=== PATIENT | female | born 1975 | race Caucasian/White ===

== ENCOUNTER 2017-12-19 07:53 | Day surgery (SDC) | payer BC ==
[2017-12-14 10:42] VITALS: BMI 19.9
[2017-12-19 08:18] VITALS: TEMP 97.9
[2017-12-19 10:07] VITALS: BP 90/70; PULSE 82
== END 2017-12-19 10:07 | disposition home or self-care (01) ==
LOC: FASU-ENDO 07:53
PROVIDERS: ATTEND Internal Medicine Gastroenterology
PROC: 0DJD8ZZ Inspection of Lower Intestinal Tract, Via Natural or Artificial Opening Endoscopic (ICD-10-PCS; principal; 2017-12-19 08:55)
DX: Z12.11 Encounter for screening for malignant neoplasm of colon (principal); Z80.0 Family history of malignant neoplasm of digestive organs
CPT/HCPCS: 84703

== ENCOUNTER 2020-11-07 13:53 | Emergency (ER) | payer BC | END 2020-11-07 15:34 | disposition home or self-care (01) | LOC: JVIRT 13:53 | DX: Z20.822 Contact with and (suspected) exposure to COVID-19 (principal) | CPT/HCPCS: C9803; G2012-GT; U0003 ==

== ENCOUNTER 2021-01-09 18:33 | Emergency (ER) | payer BC ==
[2021-01-09 18:45] VITALS: BP 106/70; PULSE 84; TEMP 98; BMI 20.5
[2021-01-09] MEDS ORDERED: IBUPROFEN 600 MG TABLET (FP) PO ONE ×2 (19:32→19:35)
== END 2021-01-09 19:38 | disposition home or self-care (01) ==
LOC: FER 18:33
DX: S60.041A Contusion of right ring finger without damage to nail, initial encounter (principal)
CPT/HCPCS: 73130-TC-RT-FY; 99283-25

== ENCOUNTER 2023-07-23 09:16 | Day surgery (SDC) | payer BC ==
[2023-07-20 09:53] VITALS: BMI 21.4
[2023-07-23 12:02] VITALS: TEMP 97
[2023-07-23 12:29] VITALS: RESP 18
[2023-07-23 12:30] VITALS: BP 100/62; PULSE 63
== END 2023-07-23 12:55 | disposition home or self-care (01) ==
LOC: FASU-ENDO 09:16
PROVIDERS: ATTEND Internal Medicine Gastroenterology
PROC: 0DBN8ZX Excision of Sigmoid Colon, Via Natural or Artificial Opening Endoscopic, Diagnostic (ICD-10-PCS; principal; 2023-07-23 11:40)
DX: Z12.11 Encounter for screening for malignant neoplasm of colon (principal); D12.5 Benign neoplasm of sigmoid colon; Z80.0 Family history of malignant neoplasm of digestive organs
CPT/HCPCS: 81025; 88305-TC